=== PATIENT | male | born 1990 | race African-American/Black ===

== ENCOUNTER 2018-07-13 16:34 | Emergency (ER) | payer OTHER ==
[~2018-07-13] VITALS: Ht 200.7 cm; Wt 153.8 kg
[2018-07-13] MEDS ORDERED: IV NORMAL SALINE 1,000ML 1,000 ML IV SCH (17:04)
--- NOTE | 2018-07-13 17:10 | PHYS DOC ---
Past History Past Medical History: Diabetes Past Surgical History: No Surgical History Adult General Chief Complaint Chief Complaint: ABDOMINAL PAIN HPI HPI Patient is a 27 year old male who presents with lower abdominal pain. Patient reports this started yesterday. Waxing and waning. Nothing seems to make it better or worse. No association with food or fatty foods, patient has had some nausea and vomiting. No blood in the emesis. No diarrhea. No change in discomfort after bowel movement. No dysuria or hematuria. No sick family. No travel.[] Review of Systems Review of Systems Constitutional: Denies fever or chills [] Eyes: Denies change in visual acuity, redness, or eye pain [] HENT: Denies nasal congestion or sore throat [] Respiratory: Denies cough or shortness of breath [] Cardiovascular: No chest pain or palpitations[] GI: See history of present illness[] : Denies dysuria or hematuria [] Musculoskeletal: Denies back pain or joint pain [] Integument: Denies rash or skin lesions [] Neurologic: Denies headache, focal weakness or sensory changes [] Endocrine: Denies polyuria or polydipsia [] All other systems were reviewed and found to be within normal limits, except as documented in this note. Allergies Allergies Allergies Coded Allergies Type Severity Reaction Last Updated Verified No Known Drug Allergies 07/13/18 No Physical Exam Physical Exam Constitutional: Well developed, well nourished, no acute distress, non-toxic appearance. [] HENT: Normocephalic, atraumatic, bilateral external ears normal, oropharynx moist, no oral exudates, nose normal. [] Eyes: PERRLA, EOMI, conjunctiva normal, no discharge. [] Neck: Normal range of motion, no tenderness, supple, no stridor. [] Cardiovascular:Heart rate regular rhythm, no murmur [] Lungs & Thorax: Bilateral breath sounds clear to auscultation [] Abdomen: Bowel sounds normal, soft, right side tenderness, no rebound, no guarding, no rigidity, no masses, no pulsatile masses. [] Skin: Warm, dry, no erythema, no rash. [] Back: No tenderness, no CVA tenderness. [] Extremities: No tenderness, no cyanosis, no clubbing, ROM intact, no edema. [] Neurologic: Alert and oriented X 3, normal motor function, normal sensory function, no focal deficits noted. [] Psychologic: Affect normal, judgement normal, mood normal. [] EKG EKG [] Radiology/Procedures Radiology/Procedures [] Impressions: Examination: CT ABD PELV W/ IV CONTRST ONLY History: Omni 300, 75ml IV. Lower abdominal pain. No previous injury or surgery Comparison/Correlation: None Findings: Axial images of the abdomen and pelvis were obtained following IV contrast. Sagittal and coronal reformatted images were provided. Visualized lung bases are clear. Liver, spleen, pancreas, adrenal glands, and kidneys are normal. High density within the gallbladder likely representing sludge is noted. No extraluminal gas. No enlarged abdominal or pelvic lymph nodes. Mesenteric lymph nodes are present and multiple but not enlarged. Small umbilical hernia contains omental fat. Appendix is normal. No bowel obstruction. Urinary bladder is mostly decompressed. Bony structures are unremarkable. Impression: Mesenteric lymph nodes are present. This may represent mesenteritis. More significant etiology is not excluded. Correlate clinically in determining interval follow-up. No focal inflammatory process or obstruction. Electronically signed by: Dread Tompkins MD (07/13/2018 6:12 PM) [facility] Course & Med Decision Making Course & Med Decision Making Pertinent Labs and Imaging studies reviewed. (See chart for details) ED course: Patient arrived, was placed in bed, in tolerated exam well. Patient care endorsed to the oncoming physician at 1800 with labs and imaging studies pending. []The patient's CT scan doesn't have any abnormalities except for some sludge in the gallbladder. This does not appear consistent with the patient's symptoms. The rest of his labs are unremarkable. The patient has had vomiting and diarrhea. It is possible this is just a gastroenteritis. I've advised that he get some rest and stay well hydrated and is couple days and see if this resolves on its own. He is stable for discharge at this time. Dragon Disclaimer Dragon Disclaimer This electronic medical record was generated, in whole or in part, using a voice recognition dictation system. Departure Departure: Impression: Primary Impression: Viral gastroenteritis Additional Impression: Abdominal pain Disposition: HOME, SELF-CARE Condition: STABLE Referrals: PCP,NO (PCP) Patient Instructions: Viral Gastroenteritis, [id number] Problem Qualifiers Additional Impression: Abdominal pain Abdominal location: lower abdomen, unspecified Qualified Codes: R10.30 - Lower abdominal pain, unspecified NAE GUZMAN DO Jul 13, 2018 17:10 ENID SINGER DO Jul 13, 2018 18:23
[2018-07-13 17:26] LABS: BASO # 0.1 x10^3/uL (0.0-0.2); BASO % 1 % (0-3); EOS # 0.1 x10^3/uL (0.0-0.7); EOS % 1 % (0-3); HEMATOCRIT 43.9 % (39.0-53.0); HEMOGLOBIN 14.7 g/dL (13.0-17.5); LYMPH # 1.4 x10^3/uL (1.0-4.8); LYMPH % 15 % (24-48); MEAN CORPUSCULAR HEMOGLOBIN 31 pg (25-35); MEAN CORPUSCULAR HGB CONC 34 g/dL (31-37); MEAN CORPUSCULAR VOLUME 92 fL (79-100); MONO # 0.5 x10^3/uL (0.0-1.1); MONO % 6 % (0-9); NEUT # 7.3 x10^3uL (1.8-7.7); NEUT % 78 % (31-73); PLATELET COUNT 311 x10^3/uL (140-400); RED BLOOD COUNT 4.79 x10^6/uL (4.30-5.70); RED CELL DISTRIBUTION WIDTH 13.8 % (11.5-14.5); WHITE BLOOD COUNT 9.4 x10^3/uL (4.0-11.0)
[2018-07-13] MEDS ORDERED: IOHEXOL 300 MG/ML 75 ML VIAL. IV ONE (17:30)
[2018-07-13] MEDS ORDERED: HYOSCYAMINE 0.125 MG TAB.RAPDIS PO ONE (17:30)
[2018-07-13] MEDS ORDERED: PROCHLORPERAZINE 10 MG/2 ML VIAL. IV ONE (17:30)
[2018-07-13 17:44] LABS: ALBUMIN 3.9 g/dL (3.4-5.0); ALBUMIN/GLOBULIN RATIO 0.9 (1.0-1.7); CALCIUM 8.9 mg/dL (8.5-10.1); CREATININE 1.3 mg/dL (0.7-1.3); POTASSIUM 3.5 mmol/L (3.5-5.1); TOTAL BILIRUBIN 0.5 mg/dL (0.2-1.0); TOTAL PROTEIN 8.4 g/dL (6.4-8.2)
[2018-07-13 17:45] LABS: BACTERIA,URINE FEW /HPF (0-FEW); BILIRUBIN,URINE NEG (NEG); CLARITY,URINE HAZY; COLOR,URINE AMBER; GLUCOSE,URINE NEG (NEG); NITRITE,URINE NEG (NEG); RBC,URINE OCC /HPF (0-2); SQUAMOUS EPITHELIAL CELL,UR MOD /LPF; UROBILINOGEN,URINE 1 mg/dL (0.2 mg/dL)
--- NOTE | 2018-07-13 18:16 | RAD ---
Examination: CT ABD PELV W/ IV CONTRST ONLY History: Omni 300, 75ml IV. Lower abdominal pain. No previous injury or surgery Comparison/Correlation: None Findings: Axial images of the abdomen and pelvis were obtained following IV contrast. Sagittal and coronal reformatted images were provided. Visualized lung bases are clear. Liver, spleen, pancreas, adrenal glands, and kidneys are normal. High density within the gallbladder likely representing sludge is noted. No extraluminal gas. No enlarged abdominal or pelvic lymph nodes. Mesenteric lymph nodes are present and multiple but not enlarged. Small umbilical hernia contains omental fat. Appendix is normal. No bowel obstruction. Urinary bladder is mostly decompressed. Bony structures are unremarkable. Impression: Mesenteric lymph nodes are present. This may represent mesenteritis. More significant etiology is not excluded. Correlate clinically in determining interval follow-up. No focal inflammatory process or obstruction. Electronically signed by: Dread Tompkins MD (07/13/2018 6:12 PM) [facility]
[2018-07-13 18:44] VITALS: BP 128/75
== END 2018-07-13 19:06 | disposition home or self-care (01) ==
LOC: ER 16:34
DX: A08.4 Viral intestinal infection, unspecified (principal); E11.9 Type 2 diabetes mellitus without complications
CPT/HCPCS: 36415; 74177; 80053; 81001; 83690; 85025; 96361; 96374; 99284; J0780; Q9967; J7030